=== PATIENT | male | born 1960 | race Caucasian/White ===

== ENCOUNTER 2018-08-03 05:35 | Inpatient (IN) | payer BC ==
[2018-08-03] MEDS: LACTATED RINGER'S 1,000 ML IV ×2 (06:26→06:27)
[2018-08-03] MEDS: CEFAZOLIN 2 GM/50 ML (PMX) 50 ML IVPB (06:27)
[2018-08-03] MEDS: BUPIVACAINE 0.25% (MPF) 30 ML INJ (06:43)
[2018-08-03] MEDS: POLYMYXIN/BACITRACIN 1L IRRIG (06:43)
[2018-08-03] MEDS ORDERED: FENTAnyl 50 MCG/ML VIAL (06:59)
[2018-08-03] MEDS ORDERED: METOCLOPRAMIDE 10 MG INJ IV (07:00)
[2018-08-03] MEDS ORDERED: FENTAnyl 50 MCG/ML VIAL IV ×2 (07:00)
[2018-08-03] MEDS ORDERED: DIPHENHYDRAMINE 50 MG INJ IV (07:00)
[2018-08-03] MEDS ORDERED: ALBUTEROL 0.083% (NEB) 2.5 MG/3 ML AMP HHN (07:00)
[2018-08-03] MEDS ORDERED: HYDROmorphONE 1 MG/5 ML IV SYRINGE IV ×2 (07:00→11:11)
[2018-08-03] MEDS ORDERED: LIDOCAINE 100 MG SYRINGE (07:44)
[2018-08-03] MEDS ORDERED: PROPOFOL 40 ML (07:44)
[2018-08-03] MEDS ORDERED: SUCCINYLCHOLINE CHLORIDE 100 MG/5 ML SYG IV (07:44)
[2018-08-03] MEDS ORDERED: ROCURONIUM 50 MG INJ (07:44)
[2018-08-03] MEDS ORDERED: SUGAMMADEX SODIUM 200 MG/2 ML VIAL IV (07:45)
[2018-08-03] MEDS ORDERED: PHENYLephrine (100 MCG/ML) 5ML SYG ×2 (07:56→09:53)
[2018-08-03 07:58] LABS: ERYTHROCYTE SEDIMENTATION RATE 2 mm/Hr (0-20)
[2018-08-03] MEDS: GELATIN SIZE 100 SPONGE (08:38)
[2018-08-03] MEDS: THROMBIN 5000 UNIT VIAL (08:39)
[2018-08-03] MEDS: HYDROmorphONE 1 MG/5 ML IV SYRINGE IV ×2 (11:13→11:27)
[2018-08-03] MEDS: MEPERIDINE 25 MG INJ IV (11:20)
[2018-08-03] MEDS: SOD CHLORIDE 0.45% 1,000 ML IV ×2 (11:35→21:09)
[2018-08-03] MEDS: FENTAnyl 50 MCG/ML VIAL IV ×2 (11:39→12:49)
[2018-08-03] MEDS ORDERED: NALOXONE (0.4 MG/ML) INJ IV (12:00)
[2018-08-03] MEDS ORDERED: ACETAMINOPHEN 325 MG TAB PO (12:00)
[2018-08-03] MEDS ORDERED: NACL 0.9% 3 ML SYG IV (12:00)
[2018-08-03] MEDS ORDERED: DIPHENHYDRAMINE 50 MG CAP PO (12:00)
[2018-08-03] MEDS ORDERED: HYDROCODONE/APAP (5/325) TAB PO (12:00)
[2018-08-03] MEDS ORDERED: PROCHLORPERAZINE 10 MG TAB PO (12:00)
[2018-08-03] MEDS ORDERED: DIAZEPAM 5 MG/ML SYG IM (12:00)
[2018-08-03] MEDS ORDERED: TRIMETHOBENZAMIDE 100 MG/ML VIAL IM (12:00)
[2018-08-03] MEDS: HYDROmorphONE 0.2 MG/ML PCA IV (12:06)
[2018-08-03] MEDS ORDERED: GLUCOSE GEL 15 GRAM TUBE PO ×2 (12:30)
[2018-08-03] MEDS ORDERED: GLUCOSE GEL 15 GRAM TUBE BUCCAL (12:30)
[2018-08-03] MEDS ORDERED: GLUCAGON 1 MG INJ IM (12:30)
[2018-08-03] MEDS ORDERED: DEXTROSE 50% 50 ML SYRINGE IV ×2 (12:30)
[2018-08-03] MEDS: ONDANSETRON 4 MG INJ IV ×2 (12:50→16:20)
[2018-08-03] MEDS: CEFAZOLIN 1 GM/50 ML (PMX) 50 ML IVPB ×2 (13:15→18:01)
[2018-08-03] MEDS: INSULIN ASPART [NOVOLOG] 3 ML PEN SC ×2 (13:24→18:02)
[2018-08-03] MEDS: ACCU-CHEK XX (17:50)
[2018-08-03] MEDS: LINAGLIPTIN 5 MG TABLET PO (18:01)
[2018-08-03] MEDS: RANITIDINE 150 MG TAB PO (21:01)
[2018-08-03] MEDS: ZOLPIDEM 5 MG TAB PO (21:02)
[2018-08-03] MEDS: INSULIN GLARGINE [LANTus] (100 UNITS/ML) SYG SC (21:04)
[2018-08-04] MEDS: CEFAZOLIN 1 GM/50 ML (PMX) 50 ML IVPB ×2 (00:07→05:17)
[2018-08-04] MEDS: ONDANSETRON 4 MG INJ IV (05:17)
[2018-08-04 06:00] LABS: HEMATOCRIT 42.5 % (42.0-52.0); HEMOGLOBIN 14.2 g/dl (14.0-18.0)
[2018-08-04 06:50] LABS: ANION GAP 11 (8-16); BLOOD UREA NITROGEN 14 mg/dl (7-20); CALCIUM 8.3 mg/dl (8.4-10.2); CARBON DIOXIDE 26 mmol/L (21-31); CHLORIDE 105 mmol/L (97-110); CREATININE 0.73 mg/dl (0.61-1.24); GLUCOSE 157 mg/dl (70-220); POTASSIUM 4.2 mmol/L (3.5-5.1); SODIUM 138 mmol/L (135-144)
[2018-08-04] MEDS: SOD CHLORIDE 0.45% 1,000 ML IV ×2 (07:35→17:26)
[2018-08-04] MEDS: ACCU-CHEK XX ×3 (08:17→18:03)
[2018-08-04] MEDS: ASCORBIC ACID 500 MG TAB PO ×2 (08:19→20:08)
[2018-08-04] MEDS: RANITIDINE 150 MG TAB PO ×2 (08:19→20:08)
[2018-08-04] MEDS: FERROUS SULFATE (EC) 325 MG TAB PO ×3 (08:20→20:08)
[2018-08-04] MEDS: LINAGLIPTIN 5 MG TABLET PO (08:21)
[2018-08-04] MEDS: DOCUSATE SODIUM 100 MG CAP PO ×2 (08:21→20:09)
[2018-08-04] MEDS: INSULIN ASPART [NOVOLOG] 3 ML PEN SC ×3 (08:26→18:02)
[2018-08-04] MEDS: HYDROCODONE/APAP (5/325) TAB PO ×2 (10:01→11:03)
[2018-08-04] MEDS: BETHANECHOL 25 MG TAB PO ×2 (11:54→16:33)
[2018-08-04] MEDS: DIAZEPAM 5 MG TAB PO ×2 (12:38→23:15)
[2018-08-04] MEDS: HYDROCODONE/APAP (10/325) TAB PO ×4 (13:36→23:15)
[2018-08-04 13:55] LABS: ADD UMIC YES; UR ASCORBIC ACID NEGATIVE (NEGATIVE); UR BACTERIA FEW /HPF (NONE SEEN); UR BILIRUBIN (Dip) NEGATIVE (NEGATIVE); UR BLOOD (Dip) 3+ mg/dL (NEGATIVE); UR CLARITY CLEAR (CLEAR); UR COLOR YELLOW (YELLOW); UR GLUCOSE (Dip) 3+ mg/dL (NEGATIVE); UR KETONES (Dip) NEGATIVE (NEGATIVE); UR LEUKOCYTE ESTERASE (Dip) NEGATIVE Leu/ul (NEGATIVE); UR MUCUS FEW /HPF (NONE SEEN); UR NITRITE (Dip) NEGATIVE (NEGATIVE); UR RBC > 182 /HPF (0-5); UR SPECIFIC GRAVITY (Dip) 1.037 (1.003-1.030); UR TOTAL PROTEIN (Dip) 1+ mg/dl (NEGATIVE); UR UROBILINOGEN (Dip) NEGATIVE (NEGATIVE); UR WBC 6 /HPF (0-5)
[2018-08-04] MEDS: INSULIN GLARGINE [LANTus] (100 UNITS/ML) SYG SC (20:08)
[2018-08-04] MEDS: CEPASTAT LOZENGE MT (21:23)
[2018-08-05] MEDS: SOD CHLORIDE 0.45% 1,000 ML IV (03:35)
[2018-08-05] MEDS: HYDROCODONE/APAP (10/325) TAB PO ×2 (05:00→12:46)
[2018-08-05] MEDS: AL HYDROX/MG HYDROX/SIMETH 30 ML CUP PO (05:00)
[2018-08-05] MEDS: ONDANSETRON 4 MG INJ IV (06:23)
[2018-08-05] MEDS: ACCU-CHEK XX ×2 (07:20→11:10)
[2018-08-05] MEDS: LINAGLIPTIN 5 MG TABLET PO (09:04)
[2018-08-05] MEDS: RANITIDINE 150 MG TAB PO (09:04)
[2018-08-05] MEDS: ASCORBIC ACID 500 MG TAB PO (09:04)
[2018-08-05] MEDS: FERROUS SULFATE (EC) 325 MG TAB PO ×2 (09:04→12:46)
[2018-08-05] MEDS: DOCUSATE SODIUM 100 MG CAP PO (09:04)
[2018-08-05] MEDS: INSULIN ASPART [NOVOLOG] 3 ML PEN SC ×2 (09:10→12:53)
== END 2018-08-05 14:55 | disposition home or self-care (01) | DRG 517 ==
LOC: REC 05:35 → MS1 13:30
PROVIDERS: Orthopaedic Surgery
PROC: 01NB0ZZ Release Lumbar Nerve, Open Approach (ICD-10-PCS; principal; 2018-08-03 07:00)
PROC: 4A11X4G Monitoring of Peripheral Nervous Electrical Activity, Intraoperative, External Approach (ICD-10-PCS; 2018-08-03 07:00)
DX: M48.061 Spinal stenosis, lumbar region without neurogenic claudication (principal); E66.01 Morbid (severe) obesity due to excess calories; Z68.39 Body mass index [BMI] 39.0-39.9, adult; E11.9 Type 2 diabetes mellitus without complications; E78.5 Hyperlipidemia, unspecified; I10 Essential (primary) hypertension
CPT/HCPCS: 72020; 80048; 81001; 82962; 85014; 85018; 85651; 86850; 86900; 86901; 86920; 87086; 97116; 97162; 97530